=== PATIENT | male | born 1980 | race African-American/Black ===

== ENCOUNTER 2017-12-03 12:31 | Emergency (ER) | payer MEDICARE ==
[~2017-12-03 12:31] MED LIST: LISI2.5T3 PO; METF1000 PO
[2017-12-03 12:33] VITALS: BP 131/84; PULSE 98; RESP 14; TEMP 98.1; O2SAT 99
--- NOTE | 2017-12-03 13:28 | RADRPT ---
EXAM DATE/TIME: 12/03/2017 12:41 [facility] COMPARISON: No previous studies available for comparison. INDICATIONS : Right hand swelling, woke up like that. MEDICAL HISTORY : None. SURGICAL HISTORY : None. ENCOUNTER: Initial ACUITY: 4 - 6 days PAIN SCORE: 8/10 LOCATION: Right hand FINDINGS: Two view examination of the right hand demonstrates no soft tissue swelling, dislocation, or fracture . The joint spaces are maintained. Bony mineralization is normal. CONCLUSION: Negative for fracture or foreign body Nic Epstein MD FACR on December 03, 2017 at 13:25 Board Certified Radiologist. This report was verified electronically.
[2017-12-03] MEDS ORDERED: BACT800T5 PO (15:24)
[2017-12-03] MEDS ORDERED: IBUP1TAB7 PO (15:24)
[2017-12-03] MEDS ORDERED: CEPH-460 PO (15:24)
--- NOTE | 2017-12-03 15:24 | PD ---
HPI Chief Complaint: Skin Problem Time Seen by Provider: 15:17 Travel History International Travel<30 days: No Contact w/Intl Traveler<30days: No Traveled to known affect area: No History of Present Illness HPI 37-year-old male presents to emergency Department with complaint of right thumb pain and swelling since Wednesday. Denies injury. Denies fever, vomiting. Denies paresthesias, loss of sensation to the thumb. Reports decreased range of motion at the MCP joint secondary to pain and swelling. Symptoms are mild in severity. Describes it as a throbbing sensation. No known relieving factors. Aggravated with movement and palpation. Dr. Mata his PCP. History of diabetes mellitus and takes metformin. No known allergies. Has no medical complaints. No other modifying factors or associated signs and symptoms. PFSH Social History Tobacco Use: No Allergies-Medications (Allergen,Severity, Reaction): Coded Allergies: No Known Allergies (Verified , 10/23/16) Reported Meds & Prescriptions Reported Meds & Active Scripts Active Ibuprofen 800 Mg Tab 800 Mg PO Q6HR PRN Keflex (Cephalexin) 500 Mg Cap 500 Mg PO Q6H 10 Days Bactrim DS (Sulfamethoxazole-Trimethoprim) 800-160 Mg Tab 1 Tab PO BID 10 Days Metformin (Metformin HCl) 1,000 Mg Tab 1,000 Mg PO BIDPC With meals Lisinopril 2.5 Mg Tab 2.5 Mg PO DAILY Review of Systems Except as stated in HPI: all other systems reviewed are Neg Physical Exam Narrative GENERAL: Well-nourished, well-developed black male patient, in no acute distress SKIN: Warm and dry. Right thumb is edematous and with tenderness on palpation to the MCP joint; minimal erythema; no palpable abscess around the bed of the finger fingernail or to the finger; no open wounds noted; decreased range of motion, but unable to actively flex the finger; sensory intact; with minimal warmth to touch compared to the left thumb. No tenderness on palpation to the metacarpal region of the right. Right upper extremity supple and non-tense with 2+ radial pulse and sensory intact without erythema or edema. No lymphangitis. HEAD: Atraumatic. Normocephalic. EYES: Pupils equal and round. No scleral icterus. No injection or drainage. ENT: Mucosa pink and moist. Airway patent. NECK: Trachea midline. CARDIOVASCULAR: Regular rate. RESPIRATORY: No accessory muscle use. GASTROINTESTINAL: Rounded. MUSCULOSKELETAL: No obvious deformities. No clubbing. No cyanosis. No edema. NEUROLOGICAL: Awake and alert. Oriented 3. No obvious cranial nerve deficits. Motor grossly within normal limits. Normal speech. PSYCHIATRIC: Appropriate mood and affect; insight and judgment normal. Data Data Last Documented VS Vital Signs Date Time Temp Pulse Resp B/P (MAP) Pulse Ox O2 Delivery O2 Flow Rate FiO2 12/03/17 12:33 98.1 98 14 131/84 (100) 99 Orders Orders Hand, Limited (2vws) (12/03/17 ) Sulfamet-Trimeth Ds 800-160 Mg (Bactrim (12/03/17 15:30) Cephalexin (Keflex) (12/03/17 15:30) Ibuprofen (Motrin) (12/03/17 15:30) Ed Discharge Order (12/03/17 15:25) [facility] Medical Decision Making Medical Screen Exam Complete: Yes Emergency Medical Condition: Yes Medical Record Reviewed: Yes Differential Diagnosis Felon, paronychia, cellulitis Narrative Course 37-year-old male with right thumb pain and swelling. Right hand x-ray was ordered in triage and concludes: Hand X-Ray 12/03/17 0000 Signed Impressions: Service Date/Time: Sunday, December 03, 2017 12:41 - CONCLUSION: Negative for fracture or foreign body Nic Epstein MD FACR X-ray findings discussed with the patient. Suspecting cellulitis. Ibuprofen, Keflex, Bactrim administered in the ER. Bactrim, Keflex, ibuprofen prescribed for home. Instructed patient to follow up with primary care provider. Patient verbalizes understanding and agreement with treatment plan. Patient is medically cleared and stable for discharge. Discussed reasons to return to the emergency department. Patient agrees with treatment plan. The patients vital signs are stable and the patient is stable for outpatient follow-up and treatment. Patient discharged home, stable and in no acute distress. Diagnosis Primary Impression: Swelling of right thumb Additional Impression: Pain of right thumb Referrals: Primary Care Physician Patient Instructions: Cellulitis (ED), General Instructions Additional Instructions: Complete full course of antibiotics Warm compresses to the affected area Keep area clean and dry Ibuprofen or Tylenol as directed and as needed for pain and inflammation Follow-up with primary care provider Return to emergency department immediately with worsening of symptoms Med/Other Pt SpecificInfo: Prescription(s) given Scripts Ibuprofen (Ibuprofen) 800 Mg Tab 800 MG PO Q6HR Y for PAIN, #30 TAB 0 Refills Prov: Kendra Ulrich 12/03/17 Cephalexin (Keflex) 500 Mg Cap 500 MG PO Q6H for Infection for 10 Days, #40 CAP 0 Refills Prov: Kendra Ulrich 12/03/17 Sulfamethoxazole-Trimethoprim (Bactrim DS) 800-160 Mg Tab 1 TAB PO BID for Infection for 10 Days, #20 TAB 0 Refills Prov: Kendra Ulrich 12/03/17 Disposition: 01 DISCHARGE HOME Condition: Stable Kendra Ulrich Dec 03, 2017 15:24
[2017-12-03] MEDS ORDERED: CEPHALEXIN MONOHYDRATE 500 MG CAP PO ONE (15:30)
[2017-12-03] MEDS ORDERED: IBUPROFEN 800 MG TAB PO ONE (15:30)
[2017-12-03] MEDS ORDERED: SULFAMETHOXAZOLE-TRIMETHOPRIM DS 800-160 MG TAB PO ONE (15:30)
[2017-12-03 15:32] VITALS: BP 140/90; PULSE 96; RESP 16; O2SAT 99
[2017-12-03 16:44] VITALS: RESP 16
== END 2017-12-03 15:44 | disposition home or self-care (01) ==
LOC: NEPD 12:31
DX: M79.644 Pain in right finger(s) (principal); M79.89 Other specified soft tissue disorders; E11.9 Type 2 diabetes mellitus without complications
CPT/HCPCS: 73120; 99284

== ENCOUNTER 2017-12-07 15:29 | Emergency (ER) | payer MEDICARE ==
[~2017-12-07] VITALS: Ht 190.5 cm; Wt 129.1 kg
[~2017-12-07 15:29] MED LIST changes: +BACT800T5 PO; +CEPH-460 PO; +IBUP1TAB7 PO
[2017-12-07 15:30] VITALS: BP 132/79; PULSE 102; RESP 18; TEMP 98.3; O2SAT 97
--- NOTE | 2017-12-07 19:00 | PD ---
HPI Chief Complaint: Skin Problem Time Seen by Provider: 18:18 Travel History International Travel<30 days: No Contact w/Intl Traveler<30days: No Traveled to known affect area: No History of Present Illness HPI 37-year-old male presents to the emergency room for reevaluation of right thumb pain and swelling. Patient is uncertain of exact onset of symptoms but approximates 1 week ago. He came to the ED 4 days ago for the same and was given prescriptions for ibuprofen, Keflex, and Bactrim. States he has been taking his medications as prescribed without improvement symptoms. Denies worsening of symptoms. Denies fever, chills, nausea, vomiting, or radiation of pain. Patient states his pain is actually improving. States he had mild drainage near the nailbed that has since stopped. PFSH Past Medical History Diabetes: Yes Diminished Hearing: No Hypertension: Yes Tetanus Vaccination: < 5 Years Influenza Vaccination: Yes Social History Alcohol Use: No Tobacco Use: No Substance Use: No Allergies-Medications (Allergen,Severity, Reaction): Coded Allergies: No Known Allergies (Verified , 10/23/16) Reported Meds & Prescriptions Reported Meds & Active Scripts Active Ibuprofen 800 Mg Tab 800 Mg PO Q6HR PRN Keflex (Cephalexin) 500 Mg Cap 500 Mg PO Q6H 10 Days Bactrim DS (Sulfamethoxazole-Trimethoprim) 800-160 Mg Tab 1 Tab PO BID 10 Days Metformin (Metformin HCl) 1,000 Mg Tab 1,000 Mg PO BIDPC With meals Lisinopril 2.5 Mg Tab 2.5 Mg PO DAILY Review of Systems Except as stated in HPI: all other systems reviewed are Neg Physical Exam Narrative GENERAL: Well-nourished, well-developed male in no acute distress. Afebrile. Ambulatory. SKIN: Focused skin assessment warm/dry.There is an indurated area in the right thumb which measures about 2 cm in diameter. It is fluctuant but there is no pointing or drainage. There is a zone of inflammation around it but no lymphangitis. HEAD: Normocephalic. EYES: No scleral icterus. No injection or drainage. NECK: Supple, trachea midline. No JVD or lymphadenopathy. CARDIOVASCULAR: Regular rate and rhythm without murmurs, gallops, or rubs. RESPIRATORY: Breath sounds equal bilaterally. No accessory muscle use. MUSCULOSKELETAL: No cyanosis. Moderate to severe edema of the right thumb. Limited range of motion secondary to edema. No significant tenderness to palpation. Data Data Last Documented VS Vital Signs Date Time Temp Pulse Resp B/P (MAP) Pulse Ox O2 Delivery O2 Flow Rate FiO2 12/07/17 18:18 18 12/07/17 15:30 98.3 102 132/79 (96) 97 Orders Orders Finger ([id number]) (12/07/17 ) Wound Culture And Gram Stain (12/07/17 18:40) MDM Medical Decision Making Medical Screen Exam Complete: Yes Emergency Medical Condition: Yes Medical Record Reviewed: Yes Differential Diagnosis Paronychia, ingrown toenail, foreign body, injury, osteomyelitis Narrative Course 37-year-old male presents to the emergency room for evaluation of right thumb pain and swelling for the past week. He came to the ER for the same 4 days ago and was given prescriptions for Bactrim and Keflex. He has been taking medication as prescribed. Denies worsening of symptoms, there is just no improvement. Physical exam reveals a large, fluctuant paronychia of the right thumb. No obvious lymphangitis. Patient has full range of motion of the MCP joint. Limited DIP flexion secondary to edema. No significant tenderness to palpation. No drainage. Vital signs stable. X-ray shows no obvious evidence of osteomyelitis with recommendation for MRI if there is strong clinical concern. I do not have strong clinical concern at this time, patient has minimal pain. Abscess was drained, see procedure note for details. Patient was told to continue taking his medications as directed and follow-up with a PCP or return for worsening symptoms. He understands and agrees to plan. Procedures Procedure Narrative INCISION AND DRAINAGE OF ABSCESS: The area was prepped. Ethyl chloride was used to anesthetize the area properly. A number 11 scalpel was used to make a 1 cm incision across the area of the abscess. The abscess was drained, complex loculations were broken down, and irrigated with normal saline. Cultures were obtained. Sterile dressing applied. Diagnosis Primary Impression: Paronychia of right thumb Referrals: Primary Care Physician Additional Instructions: Continue antibiotics as directed, until gone. Follow-up with a PCP. Return for worsening symptoms. Med/Other Pt SpecificInfo: Prescription(s) given Disposition: 01 DISCHARGE HOME Condition: Stable Selin Olmstead Dec 07, 2017 19:00
--- NOTE | 2017-12-07 19:20 | RADRPT ---
EXAM DATE/TIME: 12/07/2017 18:52 [facility] COMPARISON: No previous studies available for comparison. INDICATIONS : Right thumb pain, osteomyelitis. MEDICAL HISTORY : None. SURGICAL HISTORY : None. ENCOUNTER: Initial ACUITY: 1 day PAIN SCORE: 4/10 LOCATION: Right 1st digit. FINDINGS: Soft tissue swelling involving the right thumb. No acute fracture or dislocation. If there is strong clinical concern for osteomyelitis, MRI of the thumb with contrast would be more sensitive. CONCLUSION: Soft tissue swelling involving the right thumb. No acute fracture or dislocation. If there is strong clinical concern for osteomyelitis, MRI of the thumb with contrast would be more sens itive. Jones Mckenna MD on December 07, 2017 at 19:16 Board Certified Radiologist. This report was verified electronically.
== END 2017-12-07 20:03 | disposition home or self-care (01) ==
LOC: NEPC 15:29
DX: L03.011 Cellulitis of right finger (principal); E11.9 Type 2 diabetes mellitus without complications; I10 Essential (primary) hypertension; Z79.84 Long term (current) use of oral hypoglycemic drugs
CPT/HCPCS: 10060; 73140; 87070; 87185; 87205